=== PATIENT | female | born 1980 | race Hispanic/Latino ===

== ENCOUNTER 2016-08-30 11:07 | Emergency (ER) | payer MEDICAID ==
[2016-08-30 11:24] VITALS: BP 116/55; PULSE 68; RESP 19; TEMP 97.8
[2016-08-30 11:50] VITALS: O2SAT 98
--- NOTE | 2016-08-30 13:27 | ED PDOC ---
HPI: CCC, URI, Sore Throat Time Seen by Provider: 08/30/16 12:16 Chief Complaint (Nursing): ENT Problem Chief Complaint (Provider): ENT Problem History Per: Patient History/Exam Limitations: no limitations Onset/Duration Of Symptoms: Days Current Symptoms Are (Timing): Still Present Location Of Pain: Ear(s) Sick Contacts (Context): None Associated Symptoms: denies: Fever, Chills Ear Symptoms: Bilateral: None Severity: Mild Additional Complaint(s): Patient is a 35 year old female who presents to ED for left lower molar pain with radiation to her left ear for 2 days. Patient states pain was slightly relieved with Motrin yesterday. Notes pain was worse today. Patient had an uncomplicated tooth extraction in the same area 2 weeks ago but denies fever. Patient denies headache, facial swelling, neck pain or sinus pain. Past Medical History Reviewed: Historical Data, Nursing Documentation, Vital Signs Vital Signs: Last Vital Signs Temp 97.8 F 08/30/16 11:23 Pulse 68 08/30/16 11:23 Resp 19 08/30/16 11:23 BP 116/55 L 08/30/16 11:23 Pulse Ox 98 08/30/16 13:44 - Medical History PMH: No Chronic Diseases - Surgical History Surgical History: No Surg Hx - Family History Family History: States: Unknown Family Hx - Living Arrangements Living Arrangements: With Family - Home Medications Home Medications: Ambulatory Orders Medication Instructions Recorded valACYclovir [Valtrex] 1 gm PO Q12H #20 tab 09/12/15 Acyclovir [Zovirax] 200 mg PO Q4 #25 cap 04/28/16 Amoxicillin/Clavulanate [Augmentin 1 tab PO BID #14 tab 04/28/16 875 MG-125 MG] Ondansetron [Zofran] 4 mg PO Q6H PRN #10 tab 06/29/16 Naproxen [Naprosyn] 500 mg PO BID PRN #30 tab 08/30/16 Tramadol HCl [Ultram] 50 mg PO BID PRN #30 tablet 08/30/16 - Allergies Allergies/Adverse Reactions: Allergies Allergy/AdvReac Type Severity Reaction Status Date / Time No Known Allergies Allergy Verified 08/30/16 11:47 Review of Systems ROS Statement: Except As Marked, All Systems Reviewed And Found Negative Constitutional: Negative for: Fever, Chills ENT: Positive for: Ear Pain, Mouth Pain Respiratory: Negative for: Shortness of Breath Musculoskeletal: Negative for: Neck Pain Skin: Negative for: Rash Neurological: Negative for: Weakness Physical Exam - Reviewed Nursing Documentation Reviewed: Yes Vital Signs Reviewed: Yes - Physical Exam Appears: Positive for: Non-toxic, No Acute Distress Skin: Positive for: Normal Color, Warm Eye Exam: Positive for: Normal appearance ENT: Positive for: TM Is/Are (clear bilaterally ), Other (Left pre-molar with decaying no gingival swelling) Neck: Positive for: Normal, Painless ROM, Supple Extremity: Positive for: Normal ROM Neurologic/Psych: Positive for: Alert, Oriented - ECG O2 Sat by Pulse Oximetry: 98 (RA) Pulse Ox Interpretation: Normal Medical Decision Making Medical Decision Making: Time: 1240 Initial Impression: Tooth infection Initial Plan: -- Urine preg -- Toradol IM Scribe Attestation: Documented by Glo Roth, acting as a scribe for Sebas Soriano PA-C. Provider Scribe Attestation: All medical record entries made by the Scribe were at my direction and personally dictated by me. I have reviewed the chart and agree that the record accurately reflects my personal performance of the history, physical exam, medical decision making, and the department course for this patient. I have also personally directed, reviewed, and agree with the discharge instructions and disposition. Disposition - Clinical Impression Clinical Impression: Toothache - Patient ED Disposition Is Patient to be Admitted: No - Disposition Disposition: Routine/Home Disposition Time: 13:00 Condition: STABLE Additional Instructions: Follow up with your dentist WITHOUT FAIL. Prescriptions: Naproxen [Naprosyn] 500 mg PO BID PRN #30 tab PRN Reason: Pain Tramadol HCl [Ultram] 50 mg PO BID PRN #30 tablet PRN Reason: Other Instructions: Toothache (ED) Print Language: GREEK
== END 2016-08-30 14:15 | disposition home or self-care (01) ==
LOC: H.ER 11:07
DX: K08.89 Other specified disorders of teeth and supporting structures (principal); J02.9 Acute pharyngitis, unspecified

== ENCOUNTER 2017-05-23 00:47 | Emergency (ER) | payer MEDICAID, OTHER ==
[2017-05-23 00:58] VITALS: BP 146/101; PULSE 90; RESP 16; TEMP 98; O2SAT 100
--- NOTE | 2017-05-23 02:28 | ED PDOC ---
HPI: Psych/Substance Abuse Time Seen by Provider: 05/23/17 00:56 Chief Complaint (Nursing): Psychiatric Evaluation Chief Complaint (Provider): depression Additional Complaint(s): 36yo F in ED for eval of depression-states that she has been trying to get mental health counseling but is having difficulty. admits to hx of drug abuse, but has been in rehab without relapse. pt denies SI/HI or hallucinations. Past Medical History Reviewed: Historical Data, Nursing Documentation, Vital Signs Vital Signs: Last Vital Signs Temp 98.0 F 05/23/17 00:52 Pulse 90 05/23/17 00:52 Resp 16 05/23/17 00:52 BP 146/101 H 05/23/17 00:52 Pulse Ox 100 05/23/17 00:52 - Medical History PMH: Anxiety, Bipolar Disorder, Depression, Sexually Transmitted Disease (HERPES ) - Family History Family History: States: Unknown Family Hx - Immunization History Hx Tetanus Toxoid Vaccination: No Hx Influenza Vaccination: No Hx Pneumococcal Vaccination: No - Home Medications Home Medications: Ambulatory Orders Medication Instructions Recorded No Known Home Med 12/02/16 - Allergies Allergies/Adverse Reactions: Allergies Allergy/AdvReac Type Severity Reaction Status Date / Time No Known Allergies Allergy Verified 12/02/16 09:09 Review of Systems ROS Statement: Except As Marked, All Systems Reviewed And Found Negative Psych: Positive for: Depression Physical Exam - Reviewed Nursing Documentation Reviewed: Yes Vital Signs Reviewed: Yes - Physical Exam Appears: Positive for: Well, Non-toxic, No Acute Distress Skin: Positive for: Normal Color, Warm, DRY Cardiovascular/Chest: Positive for: Regular Rate, Rhythm Respiratory: Positive for: CNT, Normal Breath Sounds Neurologic/Psych: Positive for: Alert, Oriented - ECG O2 Sat by Pulse Oximetry: 100 - Progress ED Course And Treament: pt will get crisis evaluation. Medical Decision Making Medical Decision Making: depression under MD bridgette stable for d.c Disposition - Clinical Impression Clinical Impression: Depression - Patient ED Disposition Is Patient to be Admitted: No Counseled Patient/Family Regarding: Need For Followup - Disposition Referrals: FAMILY PROVIDER,NO [Primary Care Provider] - Disposition: Routine/Home Disposition Time: 03:28 Condition: STABLE Instructions: Depression (ED) Forms: [facility] ([employer])
== END 2017-05-23 05:11 | disposition home or self-care (01) ==
LOC: H.ER 00:47
DX: F32.9 Major depressive disorder, single episode, unspecified (principal); F31.9 Bipolar disorder, unspecified; F41.9 Anxiety disorder, unspecified